=== PATIENT | male | born 1960 | race Caucasian/White ===

== ENCOUNTER 2023-09-27 11:55 | Outpatient (AMB) | payer OTHER, SELFPAY ==
[2023-09-27 11:58] VITALS: BP 176/104; PULSE 77; O2SAT 97; BMI 39.9
--- NOTE | 2023-09-27 11:58 | AM.OFFWIN_ITS ---
Intake Vital Signs 3 09/27/23 11:58 Height 5 ft 7 in Weight 255 lb BMI 39.9 BP 176/104 H Blood Pressure Location Rt brachial Position Sitting Pulse 77 Pulse Source Pulse Oximeter Pulse Oximetry (%) 97 Oxygen Delivery Method Room Air Intake Visit Reasons: [employer] knee pain Patient Tobacco Use Status: Never used Tobacco Allergies No Known Allergies Allergy (Verified 09/27/23 12:01) Medication List - Last Reconciled 09/27/23 by Mirna Huddleston MD diclofenac sodium 75 mg PO BID 10 days Do you need a note to return to daycare/school/sports/work: No HPI [employer] LT knee pain 2 HPI0 Details Patient is 63-year-old gentleman came in today to be evaluated for pain left knee Which started 10 days ago when he twisted it. 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 Stevenson On examination patient is tender medially with pressure, range of motion is almost full but with discomfort Minimal swelling noticed compared to right knee We have placed brace on his need to stabilize it X-ray of knee ordered He is to start diclofenac 75 mg b.i.d. with food Follow-up with primary care. [facility] Social History Patient Tobacco Use Status: Never used Tobacco Review of Systems Const All systems reviewed & are unremarkable except as noted in HPI and below Physical Exam Vital Signs: Last Vital Signs Pulse 77 09/27/23 11:58 BP 176/104 H 09/27/23 11:58 Pulse Ox 97 09/27/23 11:58 Oxygen Delivery Method Room Air 09/27/23 11:58 BMI result Body Mass Index 39.9 Const General: no acute distress Orientation/consciousness: patient oriented x3 Eyes General: appearance normal, both eyes and all related structures Resp Effort & Inspection: normal respiratory effort and able to speak in complete sentences Auscultation: clear to auscultation bilaterally Neuro General: patient oriented x3 Extrem Elbow/forearm/wrist images: 2 1. Tender to pressure medially, range of motion almost fall with some soreness, minimal swelling compared to right knee Psych Mental Status: mental status grossly normal Assessment & Plan Assessment & Plan (1) Knee pain, left: Code(s): M25.562 - Pain in left knee Qualifiers: Chronicity: acute Qualified Code(s): M25.562 - Pain in left knee Plan Patient is 63-year-old gentleman came in today to be evaluated for pain left knee Which started 10 days ago when he twisted it. 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 Stevenson On examination patient is tender medially with pressure, range of motion is almost full but with discomfort Minimal swelling noticed compared to right knee We have placed brace on his need to stabilize it X-ray of knee ordered He is to start diclofenac 75 mg b.i.d. with food Follow-up with primary care. Orders: Orders 2 XR knee LT 2V Today M25.562 - Pain in left knee Medications: New 2 diclofenac sodium 75 mg PO BID 20 tabs 0RF pain 10 days Coding Level of Care Code New Pt Level 3 (59901) Diagnoses Acute pain of left knee M25.562 Chronicity: acute
== END 2023-09-27 12:15 | disposition home or self-care (01) ==
PROVIDERS: Visit Provider Internal Medicine
DX: M25.562 Pain in left knee (principal)
CPT/HCPCS: 99203

== ENCOUNTER 2023-09-27 12:14 | Outpatient (REF) | payer OTHER, SELFPAY ==
--- NOTE | ~2023-09-27 | XR_ITS ---
EXAMINATION: XR KNEE, LEFT CLINICAL INFORMATION: Pain COMPARISON: None available. TECHNIQUE: Four views of the left knee. FINDINGS: Bone alignment is normal. No acute fracture or dislocation. There is a well-corticated ossification adjacent to the lateral femoral condyle and adjacent cortical irregularity and thickening of the lateral femoral condyle likely related to old trauma. Joint spaces are normal. There is a small joint effusion. XR/XR knee LT 4V IMPRESSION: Evidence of old trauma to the lateral femoral condyle.
== END 2023-09-27 12:15 | disposition home or self-care (01) ==
LOC: HO.HMGCX 12:14
PROVIDERS: PCP Internal Medicine; Visit Provider Internal Medicine
DX: M25.562 Pain in left knee (principal)
CPT/HCPCS: 73564